=== PATIENT | male | born 1965 | race Caucasian/White ===

== ENCOUNTER 2021-02-11 05:10 | Day surgery (SDC) | payer OTHER ==
[2021-02-03 12:32] VITALS: BMI 35.7
[2021-02-11] MEDS ORDERED: ROPIVACAINE HCL 0.5% 30ML VIAL ONE (10:48)
[2021-02-11] MEDS ORDERED: MIDAZOLAM HCL 2 MG/2 ML SINGLE DOSE VIAL ONE ×2 (10:51)
[2021-02-11] MEDS ORDERED: oxyCODONE HCL 5 MG TABLET PO PRN (10:58)
[2021-02-11] MEDS ORDERED: ONDANSETRON 4 MG/2 ML VIAL IVPUSH PRN (10:58)
[2021-02-11] MEDS ORDERED: LACTATED RINGERS SOLUTION 1,000 ML IV SCH (11:00)
[2021-02-11] MEDS ORDERED: PROPOFOL 20 ML ONE (11:27)
[2021-02-11] MEDS ORDERED: TRANEXAMIC ACID 1000 MG/10 ML VIAL ONE ×2 (12:14→12:57)
[2021-02-11] MEDS ORDERED: ceFAZolin SODIUM 1 GM VIAL ONE (12:14)
[2021-02-11] MEDS ORDERED: ceFAZolin 2 GRAM PREMIX BAG IVPB ONE (12:15)
[2021-02-11] MEDS ORDERED: EPHEDRINE SULFATE/0.9% NACL/PF 50 MG/10 ML SYRINGE NR ONE (12:20)
[2021-02-11] MEDS ORDERED: PATIENT'S OWN MEDICATION (NON-FORMULARY) (Fexofenadine/Pseudoephedrine [Allegra-D 24 Hour PO PRN (14:40)
[2021-02-11 15:06] VITALS: TEMP 97.5
[2021-02-11 15:29] VITALS: BP 140/88; PULSE 82
[2021-02-11] MEDS ORDERED: ATORVASTATIN CA 10 MG TABLET (FP) PO SCH (22:00)
[2021-02-12] MEDS ORDERED: CITALOPRAM HYDROBROMIDE 10 MG TABLET PO SCH (10:00)
[2021-02-12] MEDS ORDERED: LACTOBACILLUS ACIDOPHILUS 1 TABLET PO SCH (10:00)
== END 2021-02-11 15:56 | disposition home or self-care (01) ==
LOC: JASU-SURG 05:10
PROVIDERS: ATTEND Orthopaedic Surgery Orthopaedic Surgery of the Spine
PROC: 0LQ20ZZ Repair Left Shoulder Tendon, Open Approach (ICD-10-PCS; 2021-02-11)
PROC: 0RNK0ZZ Release Left Shoulder Joint, Open Approach (ICD-10-PCS; 2021-02-11)
PROC: 0PBB0ZZ Excision of Left Clavicle, Open Approach (ICD-10-PCS; principal; 2021-02-11 12:43)
DX: M75.41 Impingement syndrome of right shoulder (principal); M75.102 Unspecified rotator cuff tear or rupture of left shoulder, not specified as traumatic
CPT/HCPCS: 94760